=== PATIENT | male | born 1965 | race Caucasian/White ===

== ENCOUNTER 2022-04-26 02:22 | Emergency (ER) | payer OTHER ==
[2022-04-26] MEDS ORDERED: Lidocaine 1% PF 5 ML VIAL ONE (03:16)
== END 2022-04-26 03:45 | disposition home or self-care (01) ==
LOC: ERS 02:22
DX: S51.012A Laceration without foreign body of left elbow, initial encounter (principal); I10 Essential (primary) hypertension; Z87.891 Personal history of nicotine dependence; Z79.899 Other long term (current) drug therapy; W19.XXXA Unspecified fall, initial encounter
CPT/HCPCS: 12001